=== PATIENT | male | born 1970 | race Caucasian/White ===

== ENCOUNTER 2020-03-26 04:48 | Emergency (ER) | payer SELFPAY ==
[2020-03-26] MEDS ORDERED: ONDANSETRON INJ 4 MG/2 ML VIAL IV ONE (05:16)
[2020-03-26] MEDS ORDERED: MORPHINE SULFATE INJ 10 MG/ML VIAL IV ONE (05:16)
--- NOTE | 2020-03-26 06:13 | RAD ---
EXAM: XR Chest, 1 View CLINICAL HISTORY: sob TECHNIQUE: Frontal view of the chest. COMPARISON: 01/03/2014 FINDINGS: Lungs: Shallow inspiration with mild basilar vascular crowding noted. No consolidation. Pleural space: No pneumothorax or pleural effusion. Heart: Normal cardiac size and configuration. Mediastinum: No abnormality noted. Bones/joints: No osseous destruction or sclerosis noted. IMPRESSION: Shallow inspiration with mild basilar vascular crowding noted. No consolidation. Electronically signed by: Maura Barbour MD 03/26/2020 6:11 AM CDT
--- NOTE | 2020-03-26 06:26 | CT ---
EXAM: CT Abdomen and Pelvis With Intravenous Contrast CLINICAL HISTORY: pain TECHNIQUE: Axial computed tomography images of the abdomen and pelvis with intravenous contrast. Sagittal and coronal reformatted images were created and reviewed. This CT exam was performed using one or more of the following dose reduction techniques: automated exposure control, adjustment of the mA and/or kV according to patient size, and/or use of iterative reconstruction technique. COMPARISON: No relevant prior studies available. FINDINGS: Limitations: None. Lung bases: No abnormality noted. Pleural space: No abnormality noted. Heart: No abnormality noted. Mediastinum: No abnormality noted. ABDOMEN: Liver: There is low density of the liver most consistent with fatty replacement. No ductal dilatation. Gallbladder and bile ducts: No calcified stones or surrounding fluid. Pancreas: Homogeneous enhancement. No mass, inflammation or ductal dilation. Spleen: No abnormality noted. Adrenals: Visualized portions appear normal. Kidneys and ureters: Homogeneous enhancement. No mass, hydronephrosis or stone. Tiny stones could be obscured by contrast. Stomach and bowel: There is moderate colonic stool. There is diffuse colonic diverticulosis most notable in the rectosigmoid. No diverticulitis. No intestinal obstruction. PELVIS: Appendix: Well seen and appears normal. Bladder: No filling defects to suggest mass or large stone. No inflammation. Reproductive: No abnormalities noted. ABDOMEN and PELVIS: Intraperitoneal space: No free air. No significant fluid collection. Bones/joints: No acute change noted. Soft tissues: No abnormality noted. Vasculature: There is mild atherosclerotic calcification of the distal aorta and iliac vessels. No aneurysm or dissection. Lymph nodes: No pathologically enlarged lymph nodes. IMPRESSION: Chronic changes as above. No acute disease. Electronically signed by: Maura Barbour MD 03/26/2020 6:25 AM CDT
--- NOTE | 2020-03-26 06:52 | ED.PDOC ---
History of Present Illness - General Chief Complaint: General Stated Complaint: Left sided abdominal pain and weakness Time Seen by Provider: 03/26/20 05:15 Source: patient Exam Limitations: no limitations - History of Present Illness Initial Comments: Pt reports left sided abdominal pain, lightheadedness and general weakness for the past 3 days. Pt denies N/V/D, F/C, urinary complaints, CP, SOB, cough. Pt has mild OTOOLE and low back pain. Pt also says hes had some dark stool, but no BRBPR. Timing/Duration: other - 2-3 days Severity: moderate Improving Factors: nothing Worsening Factors: nothing Associated Symptoms: malaise Allergies/Adverse Reactions: Allergies NO KNOWN ALLERGY Allergy (Unverified 01/03/14 08:12) Home Medications: Ambulatory Orders Ondansetron Tab [Zofran Tab] 4 mg PO Q6HRS #20 tab 03/26/20 Tramadol HCl [Ultram] 50 mg PO Q6HRS #20 tab 03/26/20 Review of Systems - Review of Systems Constitutional: States: weakness. Denies: chills, fever EENTM: States: no symptoms reported Respiratory: States: no symptoms reported. Denies: cough, short of breath, wheezing Cardiology: States: no symptoms reported Gastrointestinal/Abdominal: States: see HPI, abdominal pain, nausea, other - dark stools. Denies: constipation, vomiting Genitourinary: States: no symptoms reported Musculoskeletal: States: see HPI, back pain. Denies: muscle pain, muscle stiffness, neck pain Skin: States: no symptoms reported Neurological: States: other - occasional dizziness Endocrine: States: no symptoms reported Hematologic/Lymphatic: States: no symptoms reported Past Medical History (General) - Patient Medical History Hx Seizures: No Hx Stroke: No Hx Dementia: No Hx Asthma: No Hx of COPD: No Hx Cardiac Disorders: No Hx Congestive Heart Failure: No Hx Pacemaker: No Hx Hypertension: No Hx Thyroid Disease: No Hx Diabetes: No Hx Gastroesophageal Reflux: No Hx Renal Disease: No Hx Cancer: No Hx of HIV: No Hx Hepatitis C: No Hx MRSA: No - Vaccination History Hx Tetanus, Diphtheria Vaccination: No Hx Influenza Vaccination: No Hx Pneumococcal Vaccination: No Immunizations Up to Date: No - unknown - Social History Hx Tobacco Use: Yes - patient dips snuff Hx Alcohol Use: No Hx Substance Use: No Hx Substance Use Treatment: No Hx Depression: No Family Medical History - Family History Father Living Status: Still Living Hx Family Hypertension: Yes Physical Exam - Physical Exam General Appearance: Alert, No apparent distress Eye Exam: bilateral normal - without nystagmus Ears, Nose, Throat: hearing grossly normal Neck: non-tender, full range of motion, supple, normal inspection Respiratory: chest non-tender, lungs clear, normal breath sounds, no respiratory distress, no accessory muscle use Cardiovascular/Chest: normal peripheral pulses, regular rate, rhythm, no edema, no gallop Gastrointestinal/Abdominal: normal bowel sounds, soft, no organomegaly, no pulsatile mass, tenderness - LUQ, LLQ Back Exam: normal inspection, no CVA tenderness, no vertebral tenderness Extremity: normal range of motion, non-tender, normal inspection, no pedal edema, no calf tenderness Neurologic: alert, normal mood/affect, oriented x 3 Skin Exam: normal color, warm/dry Progress - Progress Progress: 03/26/20 06:54 EXAM: XR Chest, 1 View CLINICAL HISTORY: sob TECHNIQUE: Frontal view of the chest. COMPARISON: 01/03/2014 FINDINGS: Lungs: Shallow inspiration with mild basilar vascular crowding noted. No consolidation. Pleural space: No pneumothorax or pleural effusion. Heart: Normal cardiac size and configuration. Mediastinum: No abnormality noted. Bones/joints: No osseous destruction or sclerosis noted. IMPRESSION: Shallow inspiration with mild basilar vascular crowding noted. No consolidation. Electronically signed by: Maura Barbour MD 03/26/2020 6:11 AM CDT EXAM: CT Abdomen and Pelvis With Intravenous Contrast CLINICAL HISTORY: pain TECHNIQUE: Axial computed tomography images of the abdomen and pelvis with intravenous contrast. Sagittal and coronal reformatted images were created and reviewed. This CT exam was performed using one or more of the following dose reduction techniques: automated exposure control, adjustment of the mA and/or kV according to patient size, and/or use of iterative reconstruction technique. COMPARISON: No relevant prior studies available. FINDINGS: Limitations: None. Lung bases: No abnormality noted. Pleural space: No abnormality noted. Heart: No abnormality noted. Mediastinum: No abnormality noted. ABDOMEN: Liver: There is low density of the liver most consistent with fatty replacement. No ductal dilatation. Gallbladder and bile ducts: No calcified stones or surrounding fluid. Pancreas: Homogeneous enhancement. No mass, inflammation or ductal dilation. Spleen: No abnormality noted. Adrenals: Visualized portions appear normal. Kidneys and ureters: Homogeneous enhancement. No mass, hydronephrosis or stone. Tiny stones could be obscured by contrast. Stomach and bowel: There is moderate colonic stool. There is diffuse colonic diverticulosis most notable in the rectosigmoid. No diverticulitis. No intestinal obstruction. PELVIS: Appendix: Well seen and appears normal. Bladder: No filling defects to suggest mass or large stone. No inflammation. Reproductive: No abnormalities noted. ABDOMEN and PELVIS: Intraperitoneal space: No free air. No significant fluid collection. Bones/joints: No acute change noted. Soft tissues: No abnormality noted. Vasculature: There is mild atherosclerotic calcification of the distal aorta and iliac vessels. No aneurysm or dissection. Lymph nodes: No pathologically enlarged lymph nodes. IMPRESSION: Chronic changes as above. No acute disease. Electronically signed by: Maura Barbour MD 03/26/2020 6:25 AM CDT 03/26/20 11:26 03/26/20 05:15 EKG STAT Laboratory Results WBC 7.4 K/mm3 (4.8-10.8) 03/26/20 05:31 RBC 4.83 M/mm3 (4.70-6.10) 03/26/20 05:31 Hgb 13.4 gm/dL (14.0-18.0) L 03/26/20 05:31 Hct 39.6 % (42.0-52.0) L 03/26/20 05:31 MCV 81.9 fl (80.0-94.0) 03/26/20 05:31 MCH 27.7 pg (27.0-31.0) 03/26/20 05:31 MCHC 33.8 g/dL (33.0-37.0) 03/26/20 05:31 RDW 14.5 % (11.5-14.5) 03/26/20 05:31 Plt Count 235 K/mm3 (130-400) 03/26/20 05:31 MPV 7.8 fl (7.40-10.4) 03/26/20 05:31 Absolute Neuts (auto) 5.80 K/uL (1.8-6.8) 03/26/20 05:31 Absolute Lymphs (auto) 0.90 K/uL (1.0-3.4) L 03/26/20 05:31 Absolute Monos (auto) 0.50 K/uL (0.2-0.8) 03/26/20 05:31 Absolute Eos (auto) 0.10 K/uL (0.0-0.4) 03/26/20 05:31 Absolute Basos (auto) 0.10 K/uL (0.0-0.1) 03/26/20 05:31 Neutrophils % 78.2 % (42.0-78.0) H 03/26/20 05:31 Lymphocytes % 12.3 % (20.0-50.0) L 03/26/20 05:31 Monocytes % 6.4 % (2.0-9.0) 03/26/20 05:31 Eosinophils % 2.0 % (1.0-5.0) 03/26/20 05:31 Basophils % 1.1 % (0.0-2.0) 03/26/20 05:31 Sodium 141 mmol/L (135-145) 03/26/20 05:31 Potassium 4.5 mmol/L (3.6-5.0) 03/26/20 05:31 Chloride 109 mmol/L (101-111) 03/26/20 05:31 Carbon Dioxide 24 mmol/L (21-31) 03/26/20 05:31 Anion Gap 12.5 (12-18) 03/26/20 05:31 BUN 23 mg/dL (7-18) H 03/26/20 05:31 Creatinine 1.03 mg/dL (0.6-1.3) 03/26/20 05:31 BUN/Creatinine Ratio 22.3 (10-20) H 03/26/20 05:31 Random Glucose 95 mg/dL (70-105) 03/26/20 05:31 Serum Osmolality 284.8 mOsm/L (275-295) 03/26/20 05:31 Lactic Acid 1.7 mmol/L (0.5-2.2) 03/26/20 05:31 Calcium 8.5 mg/dL (8.4-10.2) 03/26/20 05:31 Total Bilirubin 0.5 mg/dL (0.2-1.0) 03/26/20 05:31 AST 20 IU/L (10-42) 03/26/20 05:31 ALT 26 IU/L (10-60) 03/26/20 05:31 Alkaline Phosphatase 58 IU/L (42-121) 03/26/20 05:31 Troponin I 0.02 ng/mL (0.01-0.05) 03/26/20 05:31 Serum Total Protein 5.9 gm/dL (6.4-8.2) L 03/26/20 05:31 Albumin 3.5 g/dl (3.2-5.5) 03/26/20 05:31 Globulin 2.4 gm/dL (2.3-3.5) 03/26/20 05:31 Albumin/Globulin Ratio 1.5 (1.1-1.9) 03/26/20 05:31 Lipase 37 U/L (22-51) 03/26/20 05:31 Urine Color Yellow (Yellow) 03/26/20 07:05 Urine Appearance Clear (Clear) 03/26/20 07:05 Urine pH 5.5 (4.5-7.8) 03/26/20 07:05 Ur Specific [place] 1.015 (1.005-1.030) 03/26/20 07:05 Urine Protein Negative mg/dL 03/26/20 07:05 Urine Glucose (UA) Negative mg/dL (Negative) 03/26/20 07:05 Urine Ketones Negative mg/dL (NEGATIVE) 03/26/20 07:05 Urine Blood Negative (Negative) 03/26/20 07:05 Urine Nitrite Negative 03/26/20 07:05 Urine Bilirubin Negative (NEGATIVE) 03/26/20 07:05 Urine Urobilinogen 0.2 mg/dL (0.2-1.0) 03/26/20 07:05 Ur Leukocyte Esterase Negative (Negative) 03/26/20 07:05 Urine RBC 0 /hpf 03/26/20 07:05 Urine WBC 0 /hpf 03/26/20 07:05 Ur Epithelial Cells 0 /hpf 03/26/20 07:05 Urine Bacteria 0 03/26/20 07:05 Vital Signs - 24 hr 03/26/20 03/26/20 03/26/20 05:00 06:10 07:00 Temperature 98.2 F 97.8 F Pulse Rate [ 78 74 73 monitor] Respiratory 18 20 Rate Blood Pressure 127/81 132/85 108/69 [Left Arm] O2 Sat by Pulse 98 100 99 Oximetry 03/26/20 07:55 Temperature 97.1 F L Pulse Rate [ 94 H monitor] Respiratory 18 Rate Blood Pressure 124/83 [Left Arm] O2 Sat by Pulse 98 Oximetry At d/c pt in no distress, resting comfortably. Vitals unremarkable. Workup nonacute. I explained workup in detail with both. Pt and spouse had no concerns about being d/c home. I stressed need to obtain PCP for further evaluation. Departure - Departure Clinical Impression: Left sided abdominal pain, Diverticulosis, General weakness, Back pain, Dark stools Time of Disposition: 07:09 Disposition: Discharge to Home or Self Care Condition: Excellent Departure Forms: ED Discharge - Pt. Copy, Patient Portal Self Enrollment Instructions: Low Back Pain (DC), Acute Abdomen (Belly Pain), Adult (DC) Diet: resume usual diet Activity: increase activity as tolerated Prescriptions: Tramadol HCl [Ultram] 50 mg PO Q6HRS #20 tab Ondansetron Tab [Zofran Tab] 4 mg PO Q6HRS #20 tab Home Medications: Ambulatory Orders Ondansetron Tab [Zofran Tab] 4 mg PO Q6HRS #20 tab 03/26/20 Tramadol HCl [Ultram] 50 mg PO Q6HRS #20 tab 03/26/20
[2020-03-26 07:57] VITALS: BP 124/83; TEMP 97.1; O2SAT 98
== END 2020-03-26 07:12 | disposition home or self-care (01) ==
LOC: ER 04:48
DX: K57.30 Diverticulosis of large intestine without perforation or abscess without bleeding (principal); R53.1 Weakness; M54.5 Low back pain; R19.5 Other fecal abnormalities; R51.9 Headache, unspecified; R42 Dizziness and giddiness; Z87.891 Personal history of nicotine dependence
CPT/HCPCS: 71045; 74177; 80053; 81001; 83605; 83690; 84484; 85025; 93005; J2270; J2405